=== PATIENT | male | born 1995 | race Two or more races ===

== ENCOUNTER 2016-11-19 16:24 | Emergency (ER) | payer SELFPAY ==
[~2016-11-19] VITALS: Ht 167.6 cm; Wt 81.6 kg
--- NOTE | 2016-11-19 16:42 | NUR ---
PRESENTS SELF TO ED DT DISFFUSED ABDOMINAL PAIN, VOMITING AND DIARRHEA X TODAY. PER PATIENT, IT STARTED AFTER EATING TURKMEN FOOD. PATIENT IS AFEBRILE. VSS
[2016-11-19] MEDS ORDERED: FAMOTIDINE/PF INJ 20 MG/2 ML VIAL IV ONE ×2 (16:46→17:00)
[2016-11-19] MEDS ORDERED: ONDANSETRON HCL/PF 4 MG/2 ML VIAL ONE (16:46)
[2016-11-19 16:53] LABS: BASOPHILS % (AUTO) 0.5 % (0.0-2.0); EOSINOPHILS % (AUTO) 0.5 % (0.0-6.0); HEMATOCRIT 46 % (39-51); HEMOGLOBIN 15.3 g/dL (13.5-17.5); LYMPHOCYTES # (AUTO) 2.7 /CMM (0.8-4.8); LYMPHOCYTES % (AUTO) 30.8 % (20.0-44.0); MEAN CORPUSCULAR HEMOGLOBIN 29 PG (26.0-33.0); MEAN CORPUSCULAR HGB CONC 33 g/dl (31.0-36.0); MEAN CORPUSCULAR VOLUME 89 fL (80-96); MONOCYTES # (AUTO) 0.6 /CMM (0.1-1.30); MONOCYTES % (AUTO) 7.3 % (2.0-12.0); NEUTROPHILS # (AUTO) 5.4 /CMM (1.8-8.9); NEUTROPHILS % (AUTO) 60.9 % (43.0-81.0); PLATELET COUNT (AUTO) 266 /CMM (150-450); RDW COEFFICIENT OF VARIATION 12.3 (11.5-15.0); RED BLOOD CELL COUNT(AUTO) 5.24 MIL/uL (4.5-6.0); WHITE BLOOD COUNT (AUTO) 8.7 K/uL (4.3-11.0)
[2016-11-19] MEDS ORDERED: ONDANSETRON HCL/PF 4 MG/2 ML VIAL IVP ONE (17:00)
[2016-11-19] MEDS ORDERED: IV NS 0.9% 1,000 ML BAG IV ONE (17:00)
[2016-11-19 17:03] LABS: CALCIUM, SERUM 8.9 mg/dL (8.5-10.1); CREATININE 0.9 mg/dL (0.6-1.3); POTASSIUM 3.6 mmol/L (3.5-5.1)
[2016-11-19 17:09] LABS: ALBUMIN 4.5 g/dL (3.4-5.0); BILIRUBIN,DIRECT 0.1 mg/dL (0.0-0.2); BILIRUBIN,TOTAL 0.6 mg/dL (0.2-1.0); TOTAL PROTEIN, SERUM 7.9 g/dL (6.4-8.2)
[2016-11-19 17:16] VITALS: BP 140/74
--- NOTE | 2016-11-19 17:17 | NUR ---
Patient discharged to home in stable condition. Written and verbal after care instructions given. Patient verbalizes understanding of instruction.
== END 2016-11-19 17:17 | disposition home or self-care (01) ==
LOC: ER 16:26
DX: R10.84 Generalized abdominal pain (principal)
CPT/HCPCS: 36415; 80048; 80076; 83690; 85025; 96361; 96374; 96375; 99284; A4606; J2405; J3490; J7030 ×2; Z7610

== ENCOUNTER 2023-11-11 23:04 | Emergency (ER) | payer OTHER ==
[~2023-11-11] VITALS: Ht 170.2 cm; Wt 99.8 kg
[2023-11-11 23:54] VITALS: BP 135/73; TEMP 98.3
[2023-11-12] MEDS ORDERED: CYCL5TAB PO (00:24)
[2023-11-12] MEDS ORDERED: IBUP-1490 PO (00:24)
[2023-11-12] MEDS ORDERED: IBUPROFEN 400 MG TABLET ONE (00:28)
[2023-11-12 01:26] VITALS: O2SAT 94
[2023-11-12] MEDS: CYCLOBENZAPRINE 10 MG TABLET PO ONE (01:26)
[2023-11-12] MEDS: IBUPROFEN 400 MG TABLET PO ONE (01:26)
== END 2023-11-12 01:27 | disposition home or self-care (01) ==
LOC: ER 23:07
DX: M54.2 Cervicalgia (principal); M62.838 Other muscle spasm; M54.9 Dorsalgia, unspecified; V59.59XA Passenger in pick-up truck or van injured in collision with other motor vehicles in traffic accident, initial encounter; Y93.89 Activity, other specified; Y92.488 Other paved roadways as the place of occurrence of the external cause; Y99.8 Other external cause status